=== PATIENT | female | born 1990 | race Caucasian/White ===

== ENCOUNTER 2019-08-24 05:50 | Inpatient (IN) | payer OTHER ==
[~2019-08-24] VITALS: Ht 172.7 cm; Wt 86.2 kg
[2019-08-24] MEDS ORDERED: LR 1,000 ML IV SCH ×3 (06:02→08:44)
[2019-08-24 06:14] VITALS: BP_SYST 122
[2019-08-24] MEDS ORDERED: CEFAZOLIN 2 GM IVPB PREMIX 50 ML IV SCH (06:15)
[2019-08-24] MEDS ORDERED: FLU VACC QS2019-20 36MOS UP/PF 60 MCG/0.5 ML SYRINGE I.M. PRN (06:15)
[2019-08-24 07:07] LABS: BASOPHILS % (AUTO) 0.1 % (0.0-2.0); EOSINOPHILS % (AUTO) 0.4 % (0.0-4.0); HEMATOCRIT 32.5 % (36-48); HEMOGLOBIN 11.4 g/dL (12.0-16.0); LYMPHOCYTES # (AUTO) 1.9 K/uL (1.0-5.5); LYMPHOCYTES % (AUTO) 24.4 % (20.5-51.5); MEAN CORPUSCULAR HEMOGLOBIN 34 pg (27-31); MEAN CORPUSCULAR HGB CONC 35 % (32-36); MEAN CORPUSCULAR VOLUME 97 fL (79.0-98.0); MONOCYTES # (AUTO) 0.7 K/uL (0.0-1.0); MONOCYTES % (AUTO) 9.3 % (1.7-9.3); NEUTROPHILS # (AUTO) 5.2 K/uL (1.8-7.7); NEUTROPHILS % (AUTO) 65.8 % (40.0-70.0); PLATELET COUNT (AUTO) 90 K/uL (130-430); RED BLOOD CELL COUNT(AUTO) 3.35 MIL/uL (4.2-6.2); WHITE BLOOD COUNT (AUTO) 7.9 K/uL (4.8-10.8)
[2019-08-24 07:14] LABS: BILIRUBIN,URINE NEGATIVE (NEGATIVE); BLOOD, URINE NEGATIVE (NEGATIVE); CLARITY/URINE CLEAR (CLEAR); COLOR,URINE YELLOW (YELLOW); GLUCOSE,URINE NEGATIVE (NEGATIVE); KETONES,URINE 2+ (NEGATIVE); LEUKOCYTE ESTERASE ,URINE NEGATIVE (NEGATIVE); NITRITE, URINE NEGATIVE (NEGATIVE); PH,URINE 6.5 (5.0-8.0); PROTEIN URINE NEGATIVE (NEGATIVE); UROBILINOGEN,URINE 0.2 (0.2-1.0)
[2019-08-24] MEDS ORDERED: METHYLERGONOVINE MALEATE 0.2 MG/ML AMP IM ONE (07:35)
[2019-08-24] MEDS ORDERED: NS IRRIG SOLN 1000 ML IR ONE (07:35)
[2019-08-24] MEDS ORDERED: BUPIVACAINE /DEX PF 0.75% SPINAL 2 ML AMP INJ ONE (07:35)
[2019-08-24] MEDS ORDERED: MORPHINE SULFATE 10MG/10ML PF AMP EP ONE (07:35)
[2019-08-24] MEDS ORDERED: ePHEDrine sulfate 50 MG/ML VIAL IVP ONE (07:35)
[2019-08-24] MEDS ORDERED: MIDAZOLAM HCL 5 MG/5 ML VIAL IVP ONE (07:35)
[2019-08-24] MEDS ORDERED: METOCLOPRAMIDE HCL 10 MG/2 ML VIAL IVP ONE (07:35)
[2019-08-24] MEDS ORDERED: LR 1,000 ML IV.SOLN IV ONE (07:35)
[2019-08-24] MEDS ORDERED: KETOROLAC TROMETHAMINE 60 MG/2 ML VIAL IM PRN (08:30)
[2019-08-24] MEDS ORDERED: MORPHINE SULFATE 10MG/10ML PF AMP SP SCH (08:30)
[2019-08-24] MEDS ORDERED: NALOXONE HCL 0.4 MG/ML AMP (NARCAN) IVP PRN (08:30)
[2019-08-24] MEDS ORDERED: ONDANSETRON HCL 4 MG/2 ML VIAL IVP PRN ×2 (08:30)
[2019-08-24] MEDS ORDERED: OXYTOCIN/0.9 % SODIUM CHLORIDE 1,000 ML IV ONE ×2 (08:44→09:11)
[2019-08-24] MEDS ORDERED: ANUSOL 1 EA SUPP.RECT (PREPARATION H) RC PRN (08:45)
[2019-08-24] MEDS ORDERED: DIPH-TET-PERTUS Vaccine 0.5 ML VIAL (ADACEL) I.M. PRN (08:45)
[2019-08-24] MEDS ORDERED: OXYCODONE/ACETAMINOPHEN 5-325 TABLET PO PRN (08:45)
[2019-08-24] MEDS ORDERED: MEASLES,MUMPS&RUBELLA VACC/PF 12500 UNIT/0.5 ML VIAL SUBQ PRN (08:45)
[2019-08-24] MEDS ORDERED: LANOLIN 7 GM OINT. TP PRN (08:45)
[2019-08-24] MEDS ORDERED: HYDROcodone/ACETAMIN 5-325 MG TAB (NORCO/ VICODIN) PO PRN (08:45)
[2019-08-24] MEDS ORDERED: SENNOSIDES/DOCUSATE SODIUM 1 TAB TABLET(SENOKOT-S) PO PRN (08:45)
[2019-08-24] MEDS ORDERED: BISACODYL 10 MG/SUPPOSITORY RC PRN (08:45)
[2019-08-24] MEDS ORDERED: RHO(D) IMMUNE GLOBULIN/MALTOSE 1500 UNITS/1.3 ML (WINHRO) IM PRN (08:45)
[2019-08-24 08:46] VITALS: BP_SYST 118
[2019-08-24] MEDS: DIPHENHYDRAMINE INJ 50 MG/ML VIAL IM PRN ×2 (11:43→20:23)
[2019-08-24] MEDS: CEFAZOLIN 1 GM IVPB PREMIX 50 ML IV SCH ×2 (12:30→18:05)
[2019-08-24] MEDS ORDERED: TEMAZEPAM 15 MG CAPSULE PO PRN (21:00)
[2019-08-25] MEDS: KETOROLAC TROMETHAMINE 30 MG VIAL IVP SCH ×3 (00:13→12:14)
[2019-08-25] MEDS: CEFAZOLIN 1 GM IVPB PREMIX 50 ML IV SCH (00:14)
[2019-08-25 07:44] LABS: BASOPHILS % (AUTO) 0.2 % (0.0-2.0); EOSINOPHILS % (AUTO) 0.2 % (0.0-4.0); LYMPHOCYTES # (AUTO) 1.4 K/uL (1.0-5.5); LYMPHOCYTES % (AUTO) 14.6 % (20.5-51.5); MEAN CORPUSCULAR HEMOGLOBIN 34 pg (27-31); MEAN CORPUSCULAR HGB CONC 35 % (32-36); MEAN CORPUSCULAR VOLUME 97 fL (79.0-98.0); MONOCYTES % (AUTO) 9.6 % (1.7-9.3); NEUTROPHILS # (AUTO) 7.5 K/uL (1.8-7.7); NEUTROPHILS % (AUTO) 75.4 % (40.0-70.0); PLATELET COUNT (AUTO) 90 K/uL (130-430); RED BLOOD CELL COUNT(AUTO) 2.06 MIL/uL (4.2-6.2); RED CELL DISTRIBUTION WIDTH 13.6 % (9.0-15.0); WHITE BLOOD COUNT (AUTO) 9.9 K/uL (4.8-10.8)
[2019-08-25] MEDS: OXYCODONE/ACETAMINOPHEN 5-325 TABLET PO PRN ×2 (08:22→15:08)
[2019-08-25] MEDS: FERROUS SULFATE 325 MG TABLET.DR PO SCH ×2 (12:00→14:14)
[2019-08-25] MEDS: DOCUSATE SODIUM 100 MG CAPSULE PO PRN ×2 (14:14→19:30)
[2019-08-25] MEDS: SIMETHICONE 80 MG TAB.CHEW PO PRN ×2 (14:14→19:30)
[2019-08-25] MEDS: IBUPROFEN 600 MG TABLET PO SCH (17:40)
[2019-08-26] MEDS: IBUPROFEN 600 MG TABLET PO SCH ×3 (00:39→12:21)
[2019-08-26] MEDS: OXYCODONE/ACETAMINOPHEN 5-325 TABLET PO PRN ×5 (00:45→15:34)
[2019-08-26] MEDS: FERROUS SULFATE 325 MG TABLET.DR PO SCH (15:34)
== END 2019-08-26 18:15 | disposition home or self-care (01) | DRG 787 ==
LOC: SPU 05:50
PROVIDERS: ADMIT Specialist; ATTEND Specialist
PROC: 10D00Z1 Extraction of Products of Conception, Low, Open Approach (ICD-10-PCS; principal; 2019-08-24 07:30)
DX: O32.1XX2 Maternal care for breech presentation, fetus 2 (principal); O99.12 Other diseases of the blood and blood-forming organs and certain disorders involving the immune mechanism complicating childbirth; D69.6 Thrombocytopenia, unspecified; O30.003 Twin pregnancy, unspecified number of placenta and unspecified number of amniotic sacs, third trimester; Z3A.37 37 weeks gestation of pregnancy; Z37.2 Twins, both liveborn
CPT/HCPCS: 36415; 81003; 85025; 86592; 86886; 86900; 86901; 94760; J0690; J1200; J1885; J2210; J2250; J2274; J2405; J2590; J2765; J3490; J7120

== ENCOUNTER 2019-10-19 22:02 | Observation (INO) | payer OTHER ==
[~2019-10-19] VITALS: Ht 172.7 cm; Wt 63.5 kg
[2019-10-19 22:18] VITALS: BP_SYST 117
[2019-10-19 22:56] LABS: BASOPHILS % (AUTO) 0.4 % (0.0-2.0); EOSINOPHILS # (AUTO) 0.1 K/uL (0.0-0.4); EOSINOPHILS % (AUTO) 0.9 % (0.0-4.0); HEMATOCRIT 35.2 % (36-48); HEMOGLOBIN 11.6 g/dL (12.0-16.0); LYMPHOCYTES % (AUTO) 34.1 % (20.5-51.5); MEAN CORPUSCULAR HEMOGLOBIN 31 pg (27-31); MEAN CORPUSCULAR HGB CONC 33 % (32-36); MEAN CORPUSCULAR VOLUME 93 fL (79.0-98.0); MONOCYTES # (AUTO) 0.4 K/uL (0.0-1.0); MONOCYTES % (AUTO) 6.9 % (1.7-9.3); NEUTROPHILS # (AUTO) 3.4 K/uL (1.8-7.7); NEUTROPHILS % (AUTO) 57.7 % (40.0-70.0); PLATELET COUNT (AUTO) 171 K/uL (130-430); RED BLOOD CELL COUNT(AUTO) 3.79 MIL/uL (4.2-6.2); RED CELL DISTRIBUTION WIDTH 13.2 % (9.0-15.0); WHITE BLOOD COUNT (AUTO) 5.8 K/uL (4.8-10.8)
[2019-10-19 23:22] LABS: CALCIUM 8.7 mg/dL (8.4-11.0); CREATININE 0.8 mg/dL (0.55-1.30); POTASSIUM 3.4 mmol/L (3.5-5.1)
[2019-10-19 23:26] LABS: PROTHROMBIN TIME 10.4 SECS (9.5-12.5)
[2019-10-19 23:27] LABS: ALBUMIN 3.6 g/dL (3.4-4.8); TOTAL BILIRUBIN 0.2 mg/dL (0.0-1.0)
--- NOTE | 2019-10-20 00:55 | NUR ---
Pt ambulatory to bed 2
--- NOTE | 2019-10-20 00:57 | NUR ---
Pt came to the ED for heavy vaginal bleeding with blood clots since 8 weeks ago. Reports she has been having ABD cramping. Denies dizziness, SOB or chest pain. Denies weakness. Denies n/v/d or fever. No other complaints/injuries noted. Will cont. to monitor.
[2019-10-20] MEDS ORDERED: NACL 0.9% 1,000 ML IV ONE (01:00)
--- NOTE | 2019-10-20 01:00 | NUR ---
ER at bedside examining patient.
--- NOTE | 2019-10-20 01:05 | NUR ---
Dr. Hayden at bedside speaking to pt about procedure.
--- NOTE | 2019-10-20 01:07 | NUR ---
Dr. Cool at bedside speaking to pt with consent.
--- NOTE | 2019-10-20 01:08 | NUR ---
Consent signed with surgeon and anestheologist and RN as witness. placed in chart.
--- NOTE | 2019-10-20 01:15 | NUR ---
OR team at bedside taking pt to Surgery.
[2019-10-20] MEDS ORDERED: fentaNYL CITRATE/PF 100 MCG/2 ML AMP IVP PRN ×4 (02:00→02:16)
[2019-10-20] MEDS ORDERED: ONDANSETRON HCL 4 MG/2 ML VIAL IVP PRN ×4 (02:00→06:00)
[2019-10-20] MEDS ORDERED: METHYLERGONOVINE MALEATE 0.2 MG/ML AMP ONE ×4 (02:42→03:30)
[2019-10-20] MEDS ORDERED: HEMABATE 250MCG/ML VIAL AMP IM ONE (02:49)
[2019-10-20] MEDS ORDERED: MISOPROSTOL 100 MCG TABLET (CYTOTEC) ONE (03:10)
[2019-10-20] MEDS ORDERED: OXYTOCIN 10 UNIT/ML VIAL ONE ×2 (03:26→03:30)
[2019-10-20] MEDS ORDERED: OXYTOCIN/0.9 % SODIUM CHLORIDE 20 UNITS/1,000 ML BAG IV ONE (03:30)
[2019-10-20] MEDS ORDERED: BUPIVACAINE /PF 0.75% 10 ML VIAL INJ ONE (03:30)
[2019-10-20] MEDS ORDERED: ONDANSETRON HCL 4 MG/2 ML VIAL ONE (03:30)
[2019-10-20] MEDS ORDERED: NS 1000 ML IV.SOLN IV ONE (03:30)
[2019-10-20] MEDS ORDERED: LR 1,000 ML IV.SOLN IV ONE (03:30)
[2019-10-20] MEDS ORDERED: CEFAZOLIN 2 GM IVPB PREMIX 50 ML IV ONE (03:30)
[2019-10-20] MEDS ORDERED: METHYLERGONOVINE MALEATE IV ONE ×2 (03:45→05:30)
[2019-10-20] MEDS ORDERED: D5LR IV ONE (03:45)
[2019-10-20] MEDS ORDERED: HYDROcodone/ACETAMIN 5-325 MG TAB (NORCO/ VICODIN) PO PRN (03:45)
[2019-10-20] MEDS ORDERED: OXYCODONE/ACETAMINOPHEN 5-325 TABLET PO PRN (03:45)
[2019-10-20] MEDS ORDERED: OXYTOCIN IV ONE ×2 (03:45→05:30)
[2019-10-20 05:06] VITALS: BP_SYST 114
[2019-10-20] MEDS ORDERED: LR IV ONE (05:30)
[2019-10-20] MEDS ORDERED: HYDROmorphone 2 MG/ML VIAL ONE (06:31)
[2019-10-20] MEDS ORDERED: MISOPROSTOL 100 MCG TABLET (CYTOTEC) PO SCH (09:00)
[2019-10-20 10:42] LABS: BASOPHILS % (AUTO) 0.2 % (0.0-2.0); EOSINOPHILS % (AUTO) 0.1 % (0.0-4.0); HEMATOCRIT 27.8 % (36-48); HEMOGLOBIN 9.2 g/dL (12.0-16.0); LYMPHOCYTES # (AUTO) 1.5 K/uL (1.0-5.5); LYMPHOCYTES % (AUTO) 16.4 % (20.5-51.5); MEAN CORPUSCULAR HEMOGLOBIN 30 pg (27-31); MEAN CORPUSCULAR HGB CONC 33 % (32-36); MEAN CORPUSCULAR VOLUME 90 fL (79.0-98.0); MONOCYTES # (AUTO) 0.5 K/uL (0.0-1.0); MONOCYTES % (AUTO) 5.2 % (1.7-9.3); NEUTROPHILS # (AUTO) 7.3 K/uL (1.8-7.7); NEUTROPHILS % (AUTO) 78.1 % (40.0-70.0); PLATELET COUNT (AUTO) 126 K/uL (130-430); RED BLOOD CELL COUNT(AUTO) 3.08 MIL/uL (4.2-6.2); WHITE BLOOD COUNT (AUTO) 9.3 K/uL (4.8-10.8)
== END 2019-10-20 13:00 | disposition home or self-care (01) ==
LOC: SED 22:02 → SPU 10-20 01:00 → SED 10-20 01:15
PROVIDERS: ADMIT Specialist; ATTEND Specialist
DX: O72.1 Other immediate postpartum hemorrhage (principal); N85.2 Hypertrophy of uterus; Z79.899 Other long term (current) drug therapy
CPT/HCPCS: 36415 ×2; 36430; 59160; 76830; 76857; 80053; 85025 ×2; 85610; 85730; 86886; 86900; 86901; 86920; 88305; 99285; G0378; J0690; J1170; J2210; J2405; J2590 ×2; J3490; J7030; J7120; P9021; 88307; 96360; 96365; 96375